=== PATIENT | female | born 1940 | race Caucasian/White ===

== ENCOUNTER 2017-05-24 08:25 | Day surgery (SDC) | payer OTHER, MEDICARE ==
[~2017-05-24] VITALS: Ht 154.9 cm; Wt 81.6 kg
[~2017-05-24 08:25] MED LIST: FLONASE ALLERG9.9 ML BOTH NARES; LOPRESSOR25 MG PO; LYRICA150 MG PO; MOTRIN800 MG PO; PEPCID40 MG PO; PRAVACHOL40 MG PO; PRILOSEC OTC20 MG PO; PROBIOTIC1 EAC1 PO; SYNTHROID125 MCG PO; TYLENOL ARTHRI650 MG PO; ULTRAM50 MG PO; ZYRTEC10 M3 PO
== END 2017-05-24 10:23 | disposition home or self-care (01) ==
LOC: PAIN 08:25 → SDC 09:00 → PAIN 09:00
DX: M54.16 Radiculopathy, lumbar region (principal); I10 Essential (primary) hypertension; J45.909 Unspecified asthma, uncomplicated; K21.9 Gastro-esophageal reflux disease without esophagitis; Z88.0 Allergy status to penicillin; Z88.2 Allergy status to sulfonamides
CPT/HCPCS: J1100; J2250; J3010

== ENCOUNTER 2018-02-26 10:24 | Day surgery (SDC) | payer OTHER, MEDICARE ==
[~2018-02-26] VITALS: Ht 154.9 cm; Wt 82.5 kg
== END 2018-02-26 12:02 | disposition home or self-care (01) ==
LOC: PAIN 10:24
PROC: BR161ZZ Fluoroscopy of Lumbar Facet Joint(s) using Low Osmolar Contrast (ICD-10-PCS; principal; 2018-02-26)
PROC: 3E0T3BZ Introduction of Anesthetic Agent into Peripheral Nerves and Plexi, Percutaneous Approach (ICD-10-PCS; principal; 2018-02-26)
PROC: 3E0T33Z Introduction of Anti-inflammatory into Peripheral Nerves and Plexi, Percutaneous Approach (ICD-10-PCS; principal; 2018-02-26)
DX: M47.816 Spondylosis without myelopathy or radiculopathy, lumbar region (principal); M43.16 Spondylolisthesis, lumbar region; M54.16 Radiculopathy, lumbar region; M53.3 Sacrococcygeal disorders, not elsewhere classified; M41.9 Scoliosis, unspecified; I10 Essential (primary) hypertension; K21.9 Gastro-esophageal reflux disease without esophagitis; E03.9 Hypothyroidism, unspecified; E78.5 Hyperlipidemia, unspecified; E66.9 Obesity, unspecified; Z68.35 Body mass index [BMI] 35.0-35.9, adult; Z88.0 Allergy status to penicillin; Z88.2 Allergy status to sulfonamides; Z79.891 Long term (current) use of opiate analgesic
CPT/HCPCS: J1030; J2250; S0020

== ENCOUNTER 2018-03-05 10:23 | Day surgery (SDC) | payer OTHER, MEDICARE ==
[~2018-03-05] VITALS: Ht 154.9 cm; Wt 82.5 kg
== END 2018-03-05 12:25 | disposition home or self-care (01) ==
LOC: PAIN 10:23 → SDC 11:00 → PAIN 11:00
PROC: 3E0T3BZ Introduction of Anesthetic Agent into Peripheral Nerves and Plexi, Percutaneous Approach (ICD-10-PCS; principal; 2018-03-05)
PROC: 3E0T33Z Introduction of Anti-inflammatory into Peripheral Nerves and Plexi, Percutaneous Approach (ICD-10-PCS; principal; 2018-03-05)
PROC: BR161ZZ Fluoroscopy of Lumbar Facet Joint(s) using Low Osmolar Contrast (ICD-10-PCS; principal; 2018-03-05)
DX: M47.816 Spondylosis without myelopathy or radiculopathy, lumbar region (principal); M43.16 Spondylolisthesis, lumbar region; M54.16 Radiculopathy, lumbar region; M53.3 Sacrococcygeal disorders, not elsewhere classified; K21.9 Gastro-esophageal reflux disease without esophagitis; I10 Essential (primary) hypertension; E03.9 Hypothyroidism, unspecified; M41.9 Scoliosis, unspecified; Z88.0 Allergy status to penicillin; Z79.891 Long term (current) use of opiate analgesic; J45.909 Unspecified asthma, uncomplicated
CPT/HCPCS: J1030; S0020

== ENCOUNTER 2018-05-14 07:50 | Day surgery (SDC) | payer OTHER, MEDICARE ==
[~2018-05-14] VITALS: Ht 154.9 cm; Wt 81.2 kg
[~2018-05-14 07:50] MED LIST changes: +PRAVACHOL20 MG PO; -PRAVACHOL40 MG PO
[2018-05-16] MEDS ORDERED: AZELASTINE137 MCG/0. BOTH NARES (17:05)
== END 2018-05-14 11:00 | disposition home or self-care (01) ==
LOC: PAIN 07:50 → SDC 08:30 → PAIN 08:30
DX: M47.816 Spondylosis without myelopathy or radiculopathy, lumbar region (principal); M54.16 Radiculopathy, lumbar region; M53.3 Sacrococcygeal disorders, not elsewhere classified; M43.16 Spondylolisthesis, lumbar region; I10 Essential (primary) hypertension; E78.5 Hyperlipidemia, unspecified; K21.9 Gastro-esophageal reflux disease without esophagitis; M41.9 Scoliosis, unspecified; E03.9 Hypothyroidism, unspecified; Z88.0 Allergy status to penicillin; Z88.2 Allergy status to sulfonamides; Z88.5 Allergy status to narcotic agent; Z79.891 Long term (current) use of opiate analgesic
CPT/HCPCS: J1030; J2250; J3010; S0020